=== PATIENT | female | born 2000 | race Caucasian/White ===

== ENCOUNTER 2022-04-25 07:54 | Emergency (ER) | payer OTHER ==
[~2022-04-25] VITALS: Ht 154.9 cm; Wt 76.2 kg
[2022-04-25 08:10] VITALS: BP_SYST 158
--- NOTE | 2022-04-25 08:14 | NUR ---
Patient to ER bed 5 to gown for evaluation. Side rails up. Report given to Devi CUMMINS.
--- NOTE | 2022-04-25 08:25 | NUR ---
ER at bedside examining patient.
--- NOTE | 2022-04-25 08:25 | NUR ---
PT PRESENTS TO ER FROM HOME ACCOMPANIED BY FAMILY/FRIEND. CC SORE THROAT, THROAT IS REDDENNED WITH WHITE PUSS ON TONSIL. DENIES N/V AND FEVER NOT PRESENT. AAOX4. PMH NO COVID VACCINE THYROID ISSUES
--- NOTE | 2022-04-25 08:48 | NUR ---
Strep and Covid swab done and sent to lab.
[2022-04-25 09:20] LABS: STREPTOCOCCUS A SCREEN (RAPID) NEGATIVE (NEGATIVE)
[2022-04-25 09:23] LABS: MONOTEST NEGATIVE (NEGATIVE)
[2022-04-25] MEDS ORDERED: PRED20TA PO (09:45)
[2022-04-25] MEDS ORDERED: IBUP-1969 PO (09:45)
--- NOTE | 2022-04-25 09:55 | NUR ---
Patient given written and verbal discharge instructions and verbalizes understanding. ER MD discussed with patient the results and treatment provided. Patient in stable condition. ID arm band removed. IV catheter removed intact and dressing applied, no active bleeding. Rx of IBUPROFEN AND PREDNISONE given. Patient educated on pain management and to follow up with PMD. Pain Scale 0. Opportunity for questions provided and answered. Medication side effect fact sheet provided.
[2022-04-25 10:44] VITALS: BP_SYST 155
== END 2022-04-25 09:55 | disposition home or self-care (01) ==
LOC: SED 07:54
DX: J02.9 Acute pharyngitis, unspecified (principal); R05.9 Cough, unspecified; Z20.822 Contact with and (suspected) exposure to COVID-19
CPT/HCPCS: 36415; 71045; 86308-TC; 86403; 87081; 99284